=== PATIENT | male | born 1955 | race Caucasian/White ===

== ENCOUNTER 2022-07-12 18:19 | Emergency (ER) | payer MEDICARE, OTHER ==
[2022-07-12 18:33] VITALS: BP 115/85; PULSE 88
[2022-07-12] MEDS ORDERED: Lidocaine 1% 10 ML MDV INJECT ONE (19:01)
== END 2022-07-12 22:48 | disposition home or self-care (01) ==
LOC: JD.ED 18:19
DX: S41.111A Laceration without foreign body of right upper arm, initial encounter (principal); Z91.030 Bee allergy status; Z87.891 Personal history of nicotine dependence; W27.0XXA Contact with workbench tool, initial encounter
CPT/HCPCS: 12004; 99282; J3490